=== PATIENT | male | born 1985 ===

== ENCOUNTER 2024-12-28 20:20 | Emergency (ER) | payer OTHER, SELFPAY ==
[2024-12-28 20:24] VITALS: BP 131/84; PULSE 96; RESP 20; TEMP 36.7; O2SAT 96; BMI 26.5
--- NOTE | 2024-12-28 21:48 | PC.NURSE ---
pt reports rapid pain progression on l lower molar. Pt states the pain started two days ago and progressed today, denies pain relief with Tylenol and ibuprofen,no orajel used. Pt denies headache, states the pain increases when he lays down.
[2024-12-28 22:24] VITALS: BP 119/81; PULSE 92; RESP 18; O2SAT 97
--- NOTE | 2024-12-28 22:45 | ED_ITS ---
HPI - Dental/Oral General Chief complaint: Dental/Oral Stated complaint: abscess Time Seen by Provider: 12/28/24 22:01 Source: patient Mode of arrival: ambulatory Limitations: no limitations History of Present Illness HPI Narrative: This is a 38 years old male presented to the emergency department complaining of tooth pain for about 2 days the pain is localized in the left jaw denies any fever chills vomiting. He is ambulatory to the ED MD Complaint: tooth pain Location: Tooth # (18) Onset (ago): day(s) (2) Duration: constant Severity: moderate Relieving factors: nothing Exacerbating factors: nothing Context: history of dental caries Related Data Previous Rx's ?Medication ?Instructions ?Recorded amoxicillin 875 mg-potassium 1 tab PO BID #14 tabs clavulanate 125 mg tablet naproxen 500 mg tablet (Naprosyn) 500 mg PO BID PRN PA IN #20 tabs 12/28/24 Allergies Allergy/AdvReac Type Severity Reaction Status Date / Time diphenhydramine (From AdvReac Agitated Verified 12/28/24 20:29 Benadryl) Review of Systems Constitutional: Constitutional: Reports no additional constitutional complaints ENT: Reports system reviewed and no additional complaints, except as docum ented Cardiovascular: Cardiovascular: Reports no additional cardiovascular complaints [facility] Past Medical History Attestation statement: The following information was validated with the patient. [facility] Narrative: Denies any past medical history Social History Social History Advance Directives: No Advance Directives Information Provided: Yes Physical Exam Exam: Exam: On examination he looks well is not toxic-appearing comfortable in the stretcher afebrile normotensive Vital Signs: Vital Signs: Last Vital Signs Temp 98.1 F 12/28/24 20:24 Pulse 92 12/28/24 22:24 Resp 18 12/28/24 22:24 BP 119/81 12/28/24 22:24 Pulse Ox 97 12/28/24 22:24 O2 Del Method Room Air 12/28/24 22:24 BMI result Body Mass Index 26.5 Vital signs reviewed normal Const: General: cooperative Nutritional Appearance: average body habitus Limitations: no limitations HEENT: Other: Patient has no trismus, uvula is midline General nose exam: Normal external nose present Face and sinus: Yes normal facial exam Mouth: Normal oral and palatal mucosa present Throat: Yes posterior oropharynx normal and Yes other (He has a cavity at tooth 18.) Neck: Neck: Yes normal visual inspection Chest: Chest palpation & inspection: normal inspection of the chest Resp: Effort & Inspection: normal respiratory effort Auscultation: clear to auscultation bilaterally Cardio: Rate: regular rate Rhythm: regular rhythm GI: Inspection: Yes normal to inspection Palpation (GI): Soft to palpation and not firm Skin: General skin exam: no rashes or lesions noted and elasticity normal Lesions: no lesions Rashes: no rashes Neuro: Other: The patient is awake and alert no focal Medical Decision Making Medical Decision Making [facility] Narrative: Basically the patient is here with a tooth infection he has no trismus, he is able to open his mouth is utilizer midline airways patent I think he can be discharged home on p.o. antibiotic he is comfortable with that Differential Diagnosis Differential Diagnoses: The differential diagnosis associated with the presentation includes Tooth abscess/cavity Admission/Observation Consideration of admission/observation: Escalation of care including admission/observation considered Lab Data [facility] Lab Attestation statement: I reviewed the patient's lab results. Tests considered The following testing was considered but not selected: I consider CT scan of the neck but there is no clinical evidence of abscess Prescription Management I considered prescription management with: Antibiotic Chronic Conditions none Discharge Plan Discharge Clinical Impression: Toothache Patient Disposition: Home, Self-Care Additional Instructions: Follow-up with the dentist return if worse we sent a prescription to [facility] Prescriptions: New amoxicillin-pot clavulanate 875-125 mg tablet 1 tab PO BID Qty: 14 0RF naproxen [Naprosyn] 500 mg tablet 500 mg PO BID PRN (Reason: PAIN) Qty: 20 0RF Print Language: Barbadian
[2024-12-28 23:07] VITALS: BP 119/81; PULSE 92; RESP 18; TEMP 36.6; O2SAT 97
== END 2024-12-28 23:07 | disposition home or self-care (01) ==
PROVIDERS: Emergency Provider Emergency Medicine
DX: K02.9 Dental caries, unspecified (principal); K08.89 Other specified disorders of teeth and supporting structures
CPT/HCPCS: 99283; 99284